=== PATIENT | female | born 1975 ===

== ENCOUNTER 2025-03-13 11:00 | Day surgery (SDC) | payer OTHER ==
[2025-03-13] MEDS ORDERED: METRONIDAZOLE/SODIUM CHLORIDE 500 MG/100 ML PIGGYBACK IV ONE (11:56)
[2025-03-13] MEDS ORDERED: CEFAZOLIN SODIUM 1,000 MG VIAL ONE (11:57)
[2025-03-13] MEDS ORDERED: SUGAMMADEX SODIUM 200 MG/2 ML VIAL IV ONE (12:44)
[2025-03-13] MEDS ORDERED: KETOROLAC TROMETHAMINE 30 MG VIAL IV ONE (15:00)
[2025-03-13] MEDS ORDERED: KETOROLAC TROMETHAMINE 30 MG VIAL ONE (15:49)
== END 2025-03-13 17:30 | disposition home or self-care (01) ==
LOC: CIR.AMB 11:00
PROVIDERS: ATTEND Obstetrics & Gynecology Gynecologic Oncology
DX: D28.2 Benign neoplasm of uterine tubes and ligaments (principal); N83.292 Other ovarian cyst, left side